=== PATIENT | male | born 1995 | race Caucasian/White ===

== ENCOUNTER 2020-05-12 17:55 | Emergency (ER) | payer SELFPAY ==
[~2020-05-12] VITALS: Ht 185.4 cm; Wt 122.2 kg
[2020-05-12 18:01] VITALS: BP 139/85
[2020-05-12] MEDS ORDERED: PROMETHAZINE 25 MG/ML, 1ML IM ONE (18:30)
[2020-05-12] MEDS ORDERED: PLEASE ENTER ALLERGIES MC SCH (18:30)
[2020-05-12] MEDS ORDERED: PROMETHAZINE 25 MG/ML, 1ML ONE (18:39)
--- NOTE | 2020-05-12 18:48 | NUR ---
REPORT FROM VIPUL LARSEN OF PT
[2020-05-12 18:50] LABS: BASOPHILS % (AUTO) 1 % (0-1); EOSINOPHILS % (AUTO) 1 % (1-7); LYMPHOCYTES % (AUTO) 16 % (22-44); MEAN CORPUSCULAR HEMOGLOBIN 27.5 pg (27.5-34.5); MEAN CORPUSCULAR HGB CONC 33.4 g/dL (33.2-36.2); MEAN PLATELET VOLUME 8.4 fL (7.4-10.4); MONOCYTES % (AUTO) 5 % (2-9); NEUTROPHILS % (AUTO) 77 % (42-75); PLATELET COUNT 237 x10^3/uL (130-400); RED BLOOD COUNT 5.41 x10^6/uL (4.38-5.82); RED CELL DISTRIBUTION WIDTH 13.4 % (9.4-14.8)
[2020-05-12 18:56] LABS: MD NO
[2020-05-12 19:00] LABS: ALBUMIN 4.2 g/dL (3.4-5.0); ANION GAP 8 mmol/L (5-15); CALCIUM 9.1 mg/dL (8.5-10.1); CHLORIDE 112 mmol/L (98-107); CREATININE 0.96 mg/dL (0.7-1.3)
== END 2020-05-12 19:46 | disposition home or self-care (01) ==
LOC: ED 19:42
DX: R10.84 Generalized abdominal pain (principal); R19.7 Diarrhea, unspecified; R51.9 Headache, unspecified
CPT/HCPCS: 36415; 80048; 82040; 85025; 96372; 99283; J2550

== ENCOUNTER 2020-05-17 16:23 | Emergency (ER) | payer SELFPAY ==
[~2020-05-17] VITALS: Ht 188 cm; Wt 128.0 kg
--- NOTE | 2020-05-17 17:17 | NUR ---
PATIENT WALKED BACK FROM [facility] WITH CHIEF C/O ABD CRAMPS, PER PATIENT "IT FEELS LIKE I'VE BEEN PUNCHED OVER AND OVER IN THE GUT." PATIENT REPORTS STOMACH CRAMPS STARTED WEDNESDAY, WITH EMESIS AND LUEVANO, PATIENT HAS NOT BEEN SLEEPING EITHER. PATIENT DENIES DIARRHEA AND FEVER, DOES REPORT "TAR BLACK STOOLS." NADN, CALL LIGHT WITHIN REACH.
[2020-05-17] MEDS ORDERED: ONDANSETRON ODT 4 MG PO ONE (18:00)
--- NOTE | 2020-05-17 18:01 | NUR ---
PATIENT AMBULATED TO BATHROOM WITH STEADY GAIT FOR URINE SAMPLE.
[2020-05-17] MEDS ORDERED: ONDANSETRON ODT 4 MG ONE (18:02)
[2020-05-17] MEDS ORDERED: PLEASE ENTER HEIGHT AND WEIGHT MC SCH (18:07)
--- NOTE | 2020-05-17 18:11 | NUR ---
PATIENT MEDICATED PER eMAR, URINE SAMPLE COLLECTED AND SENT TO LAB.
[2020-05-17 18:26] LABS: MICROSCOPIC NOT IND
[2020-05-17 18:37] LABS: BASOPHILS % (AUTO) 0 % (0-1); EOSINOPHILS % (AUTO) 1 % (1-7); LYMPHOCYTES % (AUTO) 23 % (22-44); MEAN CORPUSCULAR HEMOGLOBIN 27.6 pg (27.5-34.5); MEAN CORPUSCULAR HGB CONC 33.3 g/dL (33.2-36.2); MONOCYTES % (AUTO) 6 % (2-9); NEUTROPHILS % (AUTO) 69 % (42-75); PLATELET COUNT 272 x10^3/uL (130-400); RED BLOOD COUNT 5.43 x10^6/uL (4.38-5.82); RED CELL DISTRIBUTION WIDTH 13.1 % (9.4-14.8)
[2020-05-17 18:41] LABS: MD NO
[2020-05-17 18:48] LABS: ALANINE AMINOTRANSFERASE 31 U/L (12-78); ALBUMIN 4.1 g/dL (3.4-5.0); ANION GAP 4 mmol/L (5-15); CALCIUM 9.1 mg/dL (8.5-10.1); CHLORIDE 111 mmol/L (98-107); CREATININE 0.92 mg/dL (0.7-1.3)
[2020-05-17 18:50] LABS: ALKALINE PHOSPHATASE 85 U/L (45-117); BILIRUBIN,TOTAL 0.4 mg/dL (0.2-1.0); TOTAL PROTEIN 7.2 g/dL (6.4-8.2)
--- NOTE | 2020-05-17 19:26 | NUR ---
pt calm in bed. P/W/D. A&O. VSS. Pt states he feels like shit, on phone. Will monitor.
[2020-05-17 21:22] VITALS: BP 135/77
--- NOTE | 2020-05-17 21:24 | NUR ---
Patient/Caregiver given discharge instructions and they have confirmed that they understand the instructions. Patient ambulatory with steady gait. Home with taxi voucher.
== END 2020-05-17 21:25 | disposition home or self-care (01) ==
LOC: ED 16:52
DX: R10.12 Left upper quadrant pain (principal); R19.7 Diarrhea, unspecified
CPT/HCPCS: 36415; 80053; 81003; 83690; 85025; 99283; Q0162

== ENCOUNTER 2020-06-30 17:16 | Emergency (ER) | payer MEDICAID ==
[~2020-06-30] VITALS: Ht 188 cm; Wt 130.0 kg
[2020-06-30] MEDS ORDERED: ZIPRASIDONE 20 MG INJ IM ONE ×2 (17:29→18:11)
[2020-06-30] MEDS ORDERED: QUETIAPINE 100MG TABLET ONE (17:51)
[2020-06-30] MEDS ORDERED: LORazepam 1MG TABLET ONE ×2 (17:51→22:22)
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
[2020-06-30 17:57] LABS: BASOPHILS % (AUTO) 0 % (0-1); EOSINOPHILS % (AUTO) 2 % (1-7); LYMPHOCYTES % (AUTO) 19 % (22-44); MD NO; MEAN CORPUSCULAR HGB CONC 33.5 g/dL (33.2-36.2); MEAN PLATELET VOLUME 7.6 fL (7.4-10.4); MONOCYTES % (AUTO) 9 % (2-9); NEUTROPHILS % (AUTO) 69 % (42-75); PLATELET COUNT 281 x10^3/uL (130-400); RED BLOOD COUNT 5.45 x10^6/uL (4.38-5.82); RED CELL DISTRIBUTION WIDTH 13.3 % (9.4-14.8)
[2020-06-30] MEDS ORDERED: LORazepam 1MG TABLET PO ONE ×2 (18:00→22:30)
--- NOTE | 2020-06-30 18:00 | NUR ---
Mother -Katerina [phone]
[2020-06-30 18:09] LABS: ALBUMIN 4.5 g/dL (3.4-5.0); ANION GAP 5 mmol/L (5-15); CALCIUM 8.8 mg/dL (8.5-10.1); CHLORIDE 110 mmol/L (98-107); CREATININE 1.06 mg/dL (0.7-1.3)
--- NOTE | 2020-06-30 18:14 | NUR ---
REPORT FROM CHLOÉ. PT PREFERS TO BE CALLED BY [facility] BUT IS NOT KNOWN BY THAT WITH MOTHER. PT MEDICATED PER ERP ORDER. PT RELUCTANTLY TOOK MEDS, THEN ALLOWED LAB TO DRAW AFTER INITIALLY REFUSING. PT WITH ALTERNATING MOODS OF CALM AND SINGING THEN ANGRY AND PUNCHING AT BED, STATING HE IS "LIKE A VOLCANO AND HUNDRED TIMES A HUNDRED PRESSURE BUILDING UP'. PT ALSO STATES HE FEELS LIKE A CAGED ANIMAL IN THE ROOM. PT OFFERED FOOD, DRINK, BLANKET. PT ASKS FOR ACTIVITY, INCLUDING ART/DRAWING, MUSIC OR TV. PT VERBALIZES CONTRACT FOR SAFETY AND TV REMOTE GIVEN.
[2020-06-30 18:19] LABS: SALICYLATE LEVEL < 1.7 mg/dL (2.8-20.0)
--- NOTE | 2020-06-30 19:00 | NUR ---
URINE COLLECTED/WALKED TO LAB.
[2020-06-30 19:35] LABS: AMPHETAMINE SCREEN, URINE Negative (Negative); BARBITURATE SCREEN, URINE Negative (Negative); BENZODIAZEPINE SCREEN, URINE Negative (Negative); CANNABINOID SCREEN, URINE Negative (Negative); COCAINE SCREEN, URINE Negative (Negative); METHADONE SCREEN, URINE Negative (Negative); OPIATE SCREEN, URINE Negative (Negative)
--- NOTE | 2020-06-30 19:48 | NUR ---
PT SLEEPING, NAD. SITTER AT DOORWAY.
--- NOTE | 2020-06-30 20:01 | NUR ---
AJ FROM [facility] HERE TO ASSESS PT. PT SLEEPING, WILL NOT AROUSE TO VOICE. EVEN RISE AND FALL OF CHEST. AJ TO COME BACK LATER WHEN PT AWAKE TO ASSESS.
--- NOTE | 2020-06-30 20:22 | NUR ---
REPORT TO LEIA HARTMAN. NURSE WILL CALL BACK AFTER REVIEW OF CHART.
[2020-06-30] MEDS ORDERED: QUETIAPINE 100MG TABLET PO SCH (21:00)
--- NOTE | 2020-06-30 21:05 | NUR ---
REPORT TO HORTENSIA CHACON, TRANSFER OF CARE AT THIS TIME.
--- NOTE | 2020-06-30 21:18 | NUR ---
REPORT FROM SERGIO CHACON, WITH ASSESSMENT PATIENT FAST ASLEEP. GRUNTS TO PHYSICAL STIMULI CHEST RISE EVEN AND UNLABORED
--- NOTE | 2020-06-30 21:36 | NUR ---
Patient accepted by Dr. Rahman and bassam Chavis, at [place]. When attempting to set up [facility]TM was told by [facility] that patients medicaid [facility] insurance was inactive, though our registration, [place] registration and SW told this MT that patients insurance was active and when speaking to [facility] mandi Mendez who verified with her histotechnologist supervisor as long as [facility]TM denied patient they will transport so therefore transport set up for 2200.
[2020-06-30 21:44] VITALS: BP 101/57
--- NOTE | 2020-06-30 21:44 | NUR ---
vitals ontained. Provided with dinner. Patient updated on pending transfer to [place]. Patient agreeable
[2020-06-30] MEDS ORDERED: ONDANSETRON ODT 4 MG ONE (22:22)
[2020-06-30] MEDS ORDERED: ONDANSETRON ODT 4 MG PO ONE (22:30)
--- NOTE | 2020-06-30 22:31 | NUR ---
medicated per emar for nausea/anxiety
== END 2020-06-30 22:58 | disposition other institution (70) ==
LOC: ED 18:08
DX: R45.851 Suicidal ideations (principal); F22 Delusional disorders; F20.9 Schizophrenia, unspecified; F17.200 Nicotine dependence, unspecified, uncomplicated; Z91.14 Patient's other noncompliance with medication regimen
CPT/HCPCS: 36415; 80048; 80299; 80307; 80320; 80329; 82040; 85025; 99284; Q0162; G0480

== ENCOUNTER 2020-07-12 15:41 | Emergency (ER) | payer MEDICAID ==
[~2020-07-12] VITALS: Ht 188 cm; Wt 127.0 kg
[2020-07-12 15:59] VITALS: BP 133/76
== END 2020-07-12 17:27 | disposition left against medical advice (07) ==
LOC: ED 15:42
DX: R68.84 Jaw pain (principal)
CPT/HCPCS: 99283

== ENCOUNTER 2020-07-19 00:18 | Emergency (ER) | payer MEDICAID ==
[~2020-07-19] VITALS: Ht 188 cm; Wt 127.3 kg
[2020-07-19] MEDS ORDERED: ZIPRASIDONE 20 MG INJ IM ONE (01:00)
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
[2020-07-19] MEDS ORDERED: LEVOTHYROXINE (01:14)
[2020-07-19] MEDS ORDERED: SEROQUEL (01:14)
[2020-07-19] MEDS ORDERED: DEPAKOTE (01:14)
[2020-07-19 01:29] LABS: ALBUMIN 4.2 g/dL (3.4-5.0); ANION GAP 5 mmol/L (5-15); CALCIUM 9.1 mg/dL (8.5-10.1); CHLORIDE 109 mmol/L (98-107)
[2020-07-19] MEDS ORDERED: LORazepam 1MG TABLET PO ONE (01:30)
[2020-07-19 01:31] LABS: SALICYLATE LEVEL < 1.7 mg/dL (2.8-20.0)
[2020-07-19 01:40] LABS: ALANINE AMINOTRANSFERASE 25 U/L (12-78); ALKALINE PHOSPHATASE 102 U/L (45-117); BASOPHILS % (AUTO) 0 % (0-1); BILIRUBIN,TOTAL 0.2 mg/dL (0.2-1.0); CREATININE 0.93 mg/dL (0.7-1.3); EOSINOPHILS % (AUTO) 3 % (1-7); LYMPHOCYTES % (AUTO) 23 % (22-44); MEAN CORPUSCULAR HEMOGLOBIN 27.6 pg (27.5-34.5); MEAN CORPUSCULAR HGB CONC 33.1 g/dL (33.2-36.2); MEAN PLATELET VOLUME 8.7 fL (7.4-10.4); MONOCYTES % (AUTO) 9 % (2-9); NEUTROPHILS % (AUTO) 65 % (42-75); PLATELET COUNT 254 x10^3/uL (130-400); RED BLOOD COUNT 5.76 x10^6/uL (4.38-5.82); RED CELL DISTRIBUTION WIDTH 13.2 % (9.4-14.8); TOTAL PROTEIN 7.6 g/dL (6.4-8.2)
[2020-07-19 01:46] LABS: MD NO
--- NOTE | 2020-07-19 02:10 | NUR ---
PT RESTING ON GURNEY, NAD, APPEARS COMFORTABLE, EYES CLOSED, EVEN AND UNLABORED RESPIRATIONS, SITTER IN LINE OF SIGHT, ROOM SECURED. BED IN LOWEST, ONE RAILS ENGAGED, HOSPITAL BED AND BREAKFAST TRAY ORDERED. AWAITING URINE SAMPLE FOR UDS. WCTM.
--- NOTE | 2020-07-19 05:30 | NUR ---
PT NAD, RESTING ON GURNEY, EYES CLOSED, EVEN AND UNLABORED RESPIRATIONS, PT HAS YET TO WAKE UP AND OBTAIN UA. HOSPITAL BED OUTSIDE OF ROOM FOR WHEN PT AWAKENS. ROOM SECURED, SITTER IN LINE OF SIGHT, TM. L2K
--- NOTE | 2020-07-19 06:38 | NUR ---
PT NAD, RESTING ON GURNEY, EYES CLOSED, EVEN AND UNLABORED RESPIRATIONS, NO CHANGE IN CONDITION AT THIS TIME. ROOM SECURED, SITTER IN LINE OF SIGHT, [facility]. L2K
--- NOTE | 2020-07-19 06:41 | NUR ---
BEDSIDE REPORT TO YANETH CHACON, PT CARE TRANSFERRED AT THIS TIME.
--- NOTE | 2020-07-19 06:55 | NUR ---
BEDSIDE REPORT RECEIVED FROM INES MCKEON FOR TRANSFER OF PATIENT CARE.
--- NOTE | 2020-07-19 07:06 | NUR ---
PATIENT RESTING IN GURNEY WITH EYES CLOSED, RESP EVEN AND UNLABORED. SUICIDE PRECAUTIONS IN PLACE, SITTER IN LINE OF SIGHT, BREAKFAST TRAY ORDERED.
--- NOTE | 2020-07-19 08:33 | NUR ---
BREAKFAST TRAY PROVIDED, YOANDY, PATIENT COOPERATIVE WITH ASSESSMENT, VSS. PATIENT DENIES THOUGHTS OF HARMING HIMSELF AT THIS TIME. SUICIDE PRECAUTIONS IN PLACE, SITTER IN LINE OF SIGHT.
--- NOTE | 2020-07-19 08:48 | NUR ---
URINE COLLECTED AND SENT TO LAB.
[2020-07-19 08:49] LABS: AMPHETAMINE SCREEN, URINE Negative (Negative); BARBITURATE SCREEN, URINE Negative (Negative); BENZODIAZEPINE SCREEN, URINE Negative (Negative); CANNABINOID SCREEN, URINE Negative (Negative); COCAINE SCREEN, URINE Negative (Negative); METHADONE SCREEN, URINE Negative (Negative); OPIATE SCREEN, URINE Negative (Negative)
[2020-07-19 08:50] LABS: MICROSCOPIC NOT IND
--- NOTE | 2020-07-19 09:37 | NUR ---
PATIENT RESTING IN GURNEY, EYES CLOSED, RESP EVEN AND UNLABORED, SUICIDE PRECAUTIONS IN PLACE, SITTER IN LINE OF SIGHT.
--- NOTE | 2020-07-19 10:39 | NUR ---
LUNCH TRAY ORDERED.
--- NOTE | 2020-07-19 12:03 | NUR ---
PATIENT PLACED ON HOSPITAL BED, LUNCH TRAY PROVIDED, NADN, SUICIDE PREACUTIONS IN PLACE, SITTER IN LINE OF SIGHT.
--- NOTE | 2020-07-19 12:18 | NUR ---
SAM FERNANDEZ AT BEDSIDE FOR EVALUATION.
[2020-07-19] MEDS ORDERED: QUETIAPINE 100MG TABLET PO SCH (13:00)
[2020-07-19] MEDS ORDERED: QUETIAPINE 100MG TABLET ONE (13:05)
--- NOTE | 2020-07-19 13:09 | NUR ---
MEDICATED PER ORDERS. PT IN ROOM, SITTER PRESENT
--- NOTE | 2020-07-19 14:00 | NUR ---
PT PRATIMA TV. SITTER PRESENT
--- NOTE | 2020-07-19 15:19 | NUR ---
DENIED BY [facility]. PACKET FAXED TO [facility], [facility] AND [facility]
--- NOTE | 2020-07-19 15:29 | NUR ---
PT NAPPING, STTER PRESENT
[2020-07-19] MEDS ORDERED: LORazepam 1MG TABLET ONE (16:52)
--- NOTE | 2020-07-19 16:58 | NUR ---
MEDICATED W ATIVAN FOR ANXIETY. ORDERD MEAL TRAY. SITTER PRESENT.
--- NOTE | 2020-07-19 17:33 | NUR ---
MEAL TRAY GIVEN
--- NOTE | 2020-07-19 18:39 | NUR ---
[facility] CALLED AND STATED NO BEDS AT THIS TIME
--- NOTE | 2020-07-19 19:32 | NUR ---
PT WALKS AROUND AND TALKING TO THE SITTER. CALM AND COOPERATIVE. PT PROVIDED A MEAL TRAY AND FOOD PER REQUEST AND ORDERED DINNER. SITTER SITTING OUTSIDE OF ROOM.
--- NOTE | 2020-07-19 19:54 | NUR ---
PT ANXIOUS AND PACING BACK AND FORT, CONTINUES TO GO TO THE RESTROOM OVER AND OVER, AND HAS VOMITTED TWICE. PT WINDING UP AND MORE ANXIOUS AND DIFFICULT TO SETTLE HIMSELF. PT PROVIDED WITH WATER, BATHROOM PRIVILEGES, AND ALSO PRN MEDS TO HELP WITH ANXIETY. PT BACK IN BED TO HELP HIMSELF NOT FEEL SO NAUSEOUS. WARM BLANKETS PROVIDED, CALL LIGHT IN HAND, AND SITTER OUTSIDE OF ROOM WITH EYES ON.
[2020-07-19] MEDS ORDERED: LITHIUM CARBONATE 150 MG CAPSULE PO SCH (21:00)
[2020-07-19] MEDS ORDERED: QUETIAPINE 200 MG TABLET PO SCH (21:00)
--- NOTE | 2020-07-19 21:08 | NUR ---
PT RESTING IN BED WATCHING TV. NO ACUTE DISTRESS.
--- NOTE | 2020-07-19 22:40 | NUR ---
PT SLEEPING COMFORTABLY AT THIS TIME. NO ACUTE DISTRESS. SITTER OUTSIDE OF ROOM.
[2020-07-19 23:56] VITALS: BP 105/62
--- NOTE | 2020-07-20 00:04 | NUR ---
RECEIVED A CALL FROM [facility] AND PROVIDED REPORT ON PT IN ROOM 4. AND THEY V/U. AND WILL CALL US BACK IF THE MD ACCEPTS HIM. PT SLEEPING AT THIS TIME.
--- NOTE | 2020-07-20 01:45 | NUR ---
[facility] accepts. accepting doctor is Dr. Jose. via sudarshan.
--- NOTE | 2020-07-20 02:30 | NUR ---
PT SLEEPING IN BED. SITTER OUTSIDE, NO DISTRESS AT THIS TIME. [facility] HAS ACCEPTED PT, AND [facility] WILL BE AVAILABLE TO TAKE PT TO AT APPROX 0315.
--- NOTE | 2020-07-20 04:04 | NUR ---
RICHYSA ARRIVED AND PT TO BE TRANSFERRED TO [facility]. PT AWAKENED AND IN GOOD SPIRITS, COOPERATIVE AND AMBULATED TO THE AMBULANCE. PT D/C'D ON TRANSFERR TO [facility].
== END 2020-07-20 04:13 | disposition home or self-care (01) ==
LOC: ED 05:33
DX: R45.851 Suicidal ideations (principal); F32.9 Major depressive disorder, single episode, unspecified; F17.210 Nicotine dependence, cigarettes, uncomplicated; Z91.14 Patient's other noncompliance with medication regimen; F20.9 Schizophrenia, unspecified
CPT/HCPCS: 36415; 80053; 80178; 80299; 80307; 80320; 81003; 84443; 85025; 99284; 99406; Q0177; 80329; G0480

== ENCOUNTER 2020-08-15 01:10 | Emergency (ER) | payer MEDICAID ==
[~2020-08-15] VITALS: Ht 188 cm; Wt 127.0 kg
[~2020-08-15 01:10] MED LIST: DEPAKOTE; LEVOTHYROXINE; SEROQUEL
[2020-08-15 01:14] VITALS: BP 122/60
== END 2020-08-15 01:46 | disposition left against medical advice (07) ==
LOC: ED 01:40
DX: S09.90XA Unspecified injury of head, initial encounter (principal); R51.9 Headache, unspecified; V19.9XXA Pedal cyclist (driver) (passenger) injured in unspecified traffic accident, initial encounter; Y93.89 Activity, other specified; Y92.89 Other specified places as the place of occurrence of the external cause; Y99.8 Other external cause status
CPT/HCPCS: 99283

== ENCOUNTER 2020-08-25 02:43 | Emergency (ER) | payer MEDICAID ==
[~2020-08-25] VITALS: Ht 188 cm; Wt 124.8 kg
--- NOTE | 2020-08-25 02:50 | NUR ---
Patient BIBA c/o nausea and "sleepiness" after taking (4) 300mg tabs of Seroquel. Patient has an rx for this med and denies SI/SA. Patient states he has been tired and not able to sleep so he took extra meds. Patient is drowsy. Respirations even and unlabored.
--- NOTE | 2020-08-25 03:25 | NUR ---
task RN: assumed care of pt on behalf of primary RN Irwin for lunch break only. pt resting on gurney in position of comfort with eyes closed. no respiratory distress. no family at bedside
[2020-08-25] MEDS: SODIUM CHLORIDE 0.9% 1,000ML IVBOLUS ONE (03:30)
[2020-08-25 03:32] LABS: BASOPHILS % (AUTO) 1 % (0-1); EOSINOPHILS % (AUTO) 2 % (1-7); LYMPHOCYTES % (AUTO) 32 % (22-44); MEAN CORPUSCULAR HEMOGLOBIN 27.7 pg (27.5-34.5); MEAN CORPUSCULAR HGB CONC 33.8 g/dL (33.2-36.2); MEAN PLATELET VOLUME 7.9 fL (7.4-10.4); MONOCYTES % (AUTO) 7 % (2-9); NEUTROPHILS % (AUTO) 59 % (42-75); PLATELET COUNT 226 x10^3/uL (130-400); RED CELL DISTRIBUTION WIDTH 13.1 % (9.4-14.8)
[2020-08-25 03:44] LABS: ALBUMIN 3.9 g/dL (3.4-5.0); ANION GAP 7 mmol/L (5-15); CALCIUM 8.9 mg/dL (8.5-10.1); CHLORIDE 108 mmol/L (98-107)
[2020-08-25 03:45] LABS: SALICYLATE LEVEL < 1.7 mg/dL (2.8-20.0)
[2020-08-25 03:53] LABS: ALANINE AMINOTRANSFERASE 31 U/L (12-78); ALKALINE PHOSPHATASE 102 U/L (45-117); BILIRUBIN,TOTAL 0.3 mg/dL (0.2-1.0); CREATININE 0.99 mg/dL (0.7-1.3); FREE T4 (FREE THYROXINE) 0.81 ng/dL (0.76-1.46); TOTAL PROTEIN 7.4 g/dL (6.4-8.2)
--- NOTE | 2020-08-25 05:02 | NUR ---
PT REFUSED IV SAYING HE DOES NOT LIKE NEEDLES. PT SAID HE FEELS BETTER NOW AFTER HE SLEPT
[2020-08-25 06:18] VITALS: BP 132/78
--- NOTE | 2020-08-25 06:19 | NUR ---
pt reqested to leave. pt refused iv
== END 2020-08-25 06:25 | disposition home or self-care (01) ==
LOC: ED 05:50
DX: T43.591A Poisoning by other antipsychotics and neuroleptics, accidental (unintentional), initial encounter (principal); F51.01 Primary insomnia; R00.0 Tachycardia, unspecified; E03.9 Hypothyroidism, unspecified; F17.200 Nicotine dependence, unspecified, uncomplicated; R11.0 Nausea; Y92.9 Unspecified place or not applicable
CPT/HCPCS: 36415; 80053; 80299; 80320; 80329; 84439; 84443; 85025; 93005; 99284; G0480; J7030

== ENCOUNTER 2020-09-10 19:00 | Emergency (ER) | payer MEDICAID ==
[~2020-09-10] VITALS: Ht 188 cm; Wt 130.0 kg
--- NOTE | 2020-09-10 19:32 | NUR ---
PT BIB EMS FOR SI WITH A PLAN AT HOME, PT HAS A HX OF DEPRESSION, STATES HIS PLAN IS TO CUT HIMSELF WITH ALLAN NAILS OR JUMP OF A TALL BUILDING. PT APPEARS TO BE IN GOOD SPIRITS ON ARRIVAL TO ROOM, PT SINGING TO SELF AND CHANGED INTO GOWNS WITHOUT COMPLAINT. 03/15 BAGS PLACED IN LOCKER, PT ALSO HAS CRUTCHES DUE TO A LAC ON HIS FOOT THAT IS SUTURED SHUT, PT HAD A [facility] WRIST BAND THAT WAS REMOVED AND STATES HE THINKS IT WAS DONE THERE. SUPERFICIAL CUTS TO RIGHT WRIST NOTED AT THIS TIME. 03/15 BAGS AND CRUTCHES IN [facility] LOCKER. SITTER IN PLACED, ROOM SECURED, [facility].
--- NOTE | 2020-09-10 20:20 | NUR ---
PT WOUND CLEANED AND DRESSED AT THIS TIME. PT NAD, RESTING ON GURNEY, APPEARS COMFORTABLE, NO CHANGE IN CONDITION AT THIS TIME. WCTM.
[2020-09-10 20:23] LABS: BASOPHILS % (AUTO) 1 % (0-1); EOSINOPHILS % (AUTO) 1 % (1-7); LYMPHOCYTES % (AUTO) 20 % (22-44); MEAN CORPUSCULAR HEMOGLOBIN 27.6 pg (27.5-34.5); MEAN CORPUSCULAR HGB CONC 33.7 g/dL (33.2-36.2); MEAN PLATELET VOLUME 8.3 fL (7.4-10.4); MONOCYTES % (AUTO) 6 % (2-9); NEUTROPHILS % (AUTO) 72 % (42-75); PLATELET COUNT 276 x10^3/uL (130-400); RED BLOOD COUNT 5.55 x10^6/uL (4.38-5.82); RED CELL DISTRIBUTION WIDTH 13.5 % (9.4-14.8)
[2020-09-10 20:34] LABS: ALANINE AMINOTRANSFERASE 37 U/L (12-78); ALBUMIN 4.1 g/dL (3.4-5.0); ANION GAP 7 mmol/L (5-15); CALCIUM 9.4 mg/dL (8.5-10.1); CHLORIDE 109 mmol/L (98-107); CREATININE 0.87 mg/dL (0.7-1.3)
[2020-09-10 20:36] LABS: ALKALINE PHOSPHATASE 100 U/L (45-117); BILIRUBIN,TOTAL 0.6 mg/dL (0.2-1.0); SALICYLATE LEVEL < 1.7 mg/dL (2.8-20.0); TOTAL PROTEIN 7.7 g/dL (6.4-8.2)
--- NOTE | 2020-09-10 20:42 | NUR ---
pt unable to urinate at this time. provided water to assist, nad, no change in condition, sitter in line of sight, room secured, tm.
[2020-09-10 21:14] LABS: MICROSCOPIC NOT IND
[2020-09-10 21:26] LABS: AMPHETAMINE SCREEN, URINE Negative (Negative); BARBITURATE SCREEN, URINE Negative (Negative); BENZODIAZEPINE SCREEN, URINE Negative (Negative); CANNABINOID SCREEN, URINE Negative (Negative); COCAINE SCREEN, URINE Negative (Negative); METHADONE SCREEN, URINE Negative (Negative); OPIATE SCREEN, URINE Negative (Negative)
--- NOTE | 2020-09-10 21:58 | NUR ---
hugo [email or web address] contacted for possible admit.
--- NOTE | 2020-09-10 22:50 | NUR ---
REPORT TO GENNA CHACON, PT CARE TRANSFERRED AT THIS TIME. NAD, NO CHANGE IN CONDITION, ROOM SECURED, SITTER IN LINE OF SIGHT
--- NOTE | 2020-09-10 22:57 | NUR ---
Pt sitting on side of gurney, talking with sitter. No needs expressed at this time. Will cont to monitor.
--- NOTE | 2020-09-11 00:31 | NUR ---
Pt sleeping on left lateral side, covered in blankets. No acute distress noted. Room secured,sitter at doorway for observation. Will cont to monitor.
--- NOTE | 2020-09-11 02:24 | NUR ---
PT SWABBED FOR RAPID COVID. ADMIT TO BHU PENDING COVID TEST.
[2020-09-11 03:09] VITALS: BP 107/49
--- NOTE | 2020-09-11 03:14 | NUR ---
Tech at bedside for Vital signs. Pt tolerated well, vss, sitter at doorway and will cont to monitor.
[2020-09-11] MEDS ORDERED: QUET200T4 PO ×2 (11:07→14:24)
[2020-09-11] MEDS ORDERED: LEVO88TA2 PO (14:15)
[2020-09-11] MEDS ORDERED: LITH450T PO (14:24)
[2020-09-11] MEDS ORDERED: SERT50TA PO (14:24)
[2020-09-11] MEDS ORDERED: CLON1TAB PO (14:24)
[2020-09-11] MEDS ORDERED: OLAN20TA3 PO (14:24)
[2020-09-11] MEDS ORDERED: QUET400T4 PO (14:24)
== END 2020-09-11 04:18 ==
LOC: ED 21:29
DX: R45.851 Suicidal ideations (principal); Z20.822 Contact with and (suspected) exposure to COVID-19; Z72.9 Problem related to lifestyle, unspecified; R94.31 Abnormal electrocardiogram [ECG] [EKG]; E03.9 Hypothyroidism, unspecified; Z91.14 Patient's other noncompliance with medication regimen
CPT/HCPCS: 36415; 80053; 80299; 80307; 80320; 80329; 81003; 85025; 87635; 99285; G0480

== ENCOUNTER 2020-09-11 02:36 | Inpatient (IN) | payer MEDICAID ==
[~2020-09-11] VITALS: Ht 188 cm; Wt 110.7 kg
[2020-09-11] MEDS ORDERED: HYDROXYZINE PAMOATE 50MG CAP PO PRN (03:00)
[2020-09-11] MEDS ORDERED: BISACODYL 10 MG SUPP PR PRN (03:00)
[2020-09-11] MEDS ORDERED: DOCUSATE 100 MG CAPSULE PO PRN (03:00)
[2020-09-11] MEDS ORDERED: ONDANSETRON ODT 4 MG PO PRN (03:00)
[2020-09-11] MEDS ORDERED: POLYETHYLENE GLYCOL 17 GM PACKET PO PRN (03:00)
[2020-09-11] MEDS ORDERED: PLEASE ENTER HEIGHT AND WEIGHT MC SCH (05:00)
[2020-09-11 05:07] VITALS: BP 130/83
[2020-09-11] MEDS: ACETAMINOPHEN 325 MG TABLET PO PRN ×2 (05:16→11:44)
[2020-09-11] MEDS ORDERED: NICOTINE 14MG/24 HR PATCH.TD24 TD SCH (07:30)
[2020-09-11 07:38] VITALS: BP 130/82
[2020-09-11] MEDS ORDERED: NICOTINE 14MG/24 HR PATCH.TD24 ONE (07:38)
[2020-09-11 08:19] LABS: CHOL/HDL RATIO 5.1; FREE T4 (FREE THYROXINE) 0.87 ng/dL (0.76-1.46); LDL/HDL RATIO 3.4 (0.5-3.0)
[2020-09-11] MEDS: NICOTINE 14MG/24 HR PATCH.TD24 TD SCH (08:47)
[2020-09-11] MEDS: BACITRACIN/POLYMIXIN B SULFATE OINT 14 GM TP SCH ×2 (10:30→22:51)
[2020-09-11] MEDS ORDERED: QUET200T4 PO ×2 (11:07→14:24)
[2020-09-11] MEDS ORDERED: LEVO88TA2 PO (14:15)
[2020-09-11] MEDS ORDERED: QUET400T4 PO (14:24)
[2020-09-11] MEDS ORDERED: CLON1TAB PO (14:24)
[2020-09-11] MEDS ORDERED: LITH450T PO (14:24)
[2020-09-11] MEDS ORDERED: SERT50TA PO (14:24)
[2020-09-11] MEDS ORDERED: OLAN20TA3 PO (14:24)
[2020-09-11] MEDS ORDERED: HALOPERIDOL 5 MG/ML IM STA (17:11)
[2020-09-11] MEDS ORDERED: DIPHENHYDRAMINE 50 MG/ML, 1ML IM STA (17:11)
[2020-09-11] MEDS ORDERED: LORazepam 2 MG/ML, 1ML IM STA (17:11)
[2020-09-11] MEDS ORDERED: LORazepam 2 MG/ML, 1ML ONE (17:14)
[2020-09-11] MEDS ORDERED: HALOPERIDOL 5 MG/ML ONE (17:14)
[2020-09-11] MEDS ORDERED: DIPHENHYDRAMINE 50 MG/ML, 1ML ONE (17:14)
[2020-09-11 19:36] VITALS: BP 116/63
[2020-09-11] MEDS: OLANZAPINE 5 MG TABLET PO SCH (22:51)
[2020-09-11] MEDS: LITHIUM CARBONATE 150 MG CAPSULE PO SCH (22:51)
[2020-09-11] MEDS: QUETIAPINE 100MG TABLET PO SCH (22:51)
[2020-09-11] MEDS: SERTRALINE 50MG TABLET PO SCH (22:51)
[2020-09-12] MEDS: LEVOTHYROXINE 88 MCG TABLET PO SCH (06:00)
[2020-09-12 10:17] VITALS: BP 105/69
[2020-09-12] MEDS: LITHIUM CARBONATE 150 MG CAPSULE PO SCH ×2 (10:20→20:37)
[2020-09-12] MEDS: QUETIAPINE 100MG TABLET PO SCH ×2 (10:20→20:37)
[2020-09-12] MEDS: NICOTINE 14MG/24 HR PATCH.TD24 TD SCH (10:22)
[2020-09-12] MEDS: BACITRACIN/POLYMIXIN B SULFATE OINT 14 GM TP SCH (10:23)
[2020-09-12 19:28] VITALS: BP_SYST 130; BP_SYST 147; BP_DIAS 76; BP_DIAS 80
[2020-09-12] MEDS: ACETAMINOPHEN 325 MG TABLET PO PRN (20:36)
[2020-09-12] MEDS: OLANZAPINE 5 MG TABLET PO SCH (20:36)
[2020-09-12] MEDS: SERTRALINE 50MG TABLET PO SCH (20:37)
[2020-09-12] MEDS ORDERED: BACITRACIN/POLYMIXIN B SULFATE OINT 14 GM TP SCH (21:00)
[2020-09-13] MEDS: LEVOTHYROXINE 88 MCG TABLET PO SCH (06:02)
[2020-09-13 07:40] VITALS: BP 116/72
[2020-09-13] MEDS: QUETIAPINE 100MG TABLET PO SCH ×2 (08:26→22:19)
[2020-09-13] MEDS: NICOTINE 14MG/24 HR PATCH.TD24 TD SCH (08:26)
[2020-09-13] MEDS: LITHIUM CARBONATE 150 MG CAPSULE PO SCH ×2 (08:26→22:18)
[2020-09-13 19:33] VITALS: BP 120/70
[2020-09-13] MEDS: BACITRACIN/POLYMIXIN B SULFATE OINT 14 GM TP SCH (21:00)
[2020-09-13] MEDS: ACETAMINOPHEN 325 MG TABLET PO PRN (22:19)
[2020-09-13] MEDS: SERTRALINE 50MG TABLET PO SCH (22:20)
[2020-09-13] MEDS: OLANZAPINE 5 MG TABLET PO SCH (22:20)
[2020-09-14] MEDS: LEVOTHYROXINE 88 MCG TABLET PO SCH (06:04)
[2020-09-14 09:18] VITALS: BP 121/59
[2020-09-14] MEDS: LITHIUM CARBONATE 150 MG CAPSULE PO SCH ×2 (09:32→21:35)
[2020-09-14] MEDS: QUETIAPINE 100MG TABLET PO SCH ×3 (09:33→21:42)
[2020-09-14] MEDS: NICOTINE 14MG/24 HR PATCH.TD24 TD SCH (10:08)
[2020-09-14 19:51] VITALS: BP 120/83
[2020-09-14] MEDS: BACITRACIN/POLYMIXIN B SULFATE OINT 14 GM TP SCH (21:00)
[2020-09-14] MEDS: SERTRALINE 50MG TABLET PO SCH (21:35)
[2020-09-14] MEDS: OLANZAPINE 5 MG TABLET PO SCH (21:36)
[2020-09-15] MEDS: LEVOTHYROXINE 88 MCG TABLET PO SCH (06:00)
[2020-09-15] MEDS: BACITRACIN/POLYMIXIN B SULFATE OINT 14 GM TP SCH (09:00)
[2020-09-15] MEDS: LITHIUM CARBONATE 150 MG CAPSULE PO SCH ×2 (09:40→22:55)
[2020-09-15] MEDS: QUETIAPINE 100MG TABLET PO SCH ×2 (09:41→22:55)
[2020-09-15] MEDS: NICOTINE 14MG/24 HR PATCH.TD24 TD SCH (09:43)
[2020-09-15] MEDS: ACETAMINOPHEN 325 MG TABLET PO PRN (14:54)
[2020-09-15] MEDS ORDERED: NICO-486 TD (15:25)
[2020-09-15] MEDS ORDERED: QUET400T4 PO (15:25)
[2020-09-15] MEDS ORDERED: QUET100T PO (15:25)
[2020-09-15] MEDS ORDERED: LEVO88TA2 PO (15:25)
[2020-09-15] MEDS ORDERED: SERT50TA28 PO (15:25)
[2020-09-15] MEDS ORDERED: LITH150C PO (15:25)
[2020-09-15] MEDS ORDERED: OLAN5TAB9 PO (15:25)
[2020-09-15 19:29] VITALS: BP 119/78
[2020-09-15] MEDS: OLANZAPINE 5 MG TABLET PO SCH (22:56)
[2020-09-15] MEDS: SERTRALINE 50MG TABLET PO SCH (22:56)
[2020-09-16] MEDS: LEVOTHYROXINE 88 MCG TABLET PO SCH (06:00)
[2020-09-16 07:36] VITALS: BP 125/83
[2020-09-16] MEDS: QUETIAPINE 100MG TABLET PO SCH (08:24)
[2020-09-16] MEDS: LITHIUM CARBONATE 150 MG CAPSULE PO SCH (08:25)
[2020-09-16] MEDS: NICOTINE 14MG/24 HR PATCH.TD24 TD SCH (08:25)
[2020-09-16] MEDS: BACITRACIN/POLYMIXIN B SULFATE OINT 14 GM TP SCH (08:28)
== END 2020-09-16 10:39 | disposition home or self-care (01) | DRG 885 ==
LOC: 3E 04:32
PROVIDERS: ADMIT Psychiatry & Neurology Psychosomatic Medicine; ATTEND Psychiatry & Neurology Psychosomatic Medicine
DX: F25.0 Schizoaffective disorder, bipolar type (principal); R45.851 Suicidal ideations; F17.210 Nicotine dependence, cigarettes, uncomplicated; E03.9 Hypothyroidism, unspecified; Z78.1 Physical restraint status; Z79.899 Other long term (current) drug therapy
CPT/HCPCS: 36415; 80061; 80178; 82607; 84439; 84443; 93005; Q0162; J1200; J1630; J2060

== ENCOUNTER 2020-10-05 20:30 | Emergency (ER) | payer MEDICAID ==
[~2020-10-05 20:30] MED LIST changes: +CLON1TAB PO; +LEVO88TA2 PO; +LITH150C PO; +LITH450T PO; +NICO-486 TD; +OLAN20TA3 PO; +OLAN5TAB69 PO; +QUET100T PO; +QUET200T4 PO; +QUET400T4 PO; +SERT50TA PO; +SERT50TA28 PO
[2020-10-05 20:33] VITALS: BP 121/76
--- NOTE | 2020-10-05 20:45 | NUR ---
PT PRESENTS TO ER FOR RIGHT LOWER BACK PAIN THAT STARTED ABOUT FOUR AND A HALF HOURS AGO, PT WAS SWIMMING IN THE [place] AND THE CURRENT PULLED YOU IN AND PT STATES YOU CURLED INTO A BALL TO PREVENT ANYTHING FROM BREAKING AND THEN PT HIT HIS BACK ON A ROCK, PT STATES HE IS IN EXCRUCIATING PAIN BUT PT IS WATCHING A VIDEO ON HIS PHONE AND IS VERY CALM AND RELAXED, PT ASKING FOR WIFI PASSWORD, PT NAD AT THIS TIME
[2020-10-05] MEDS ORDERED: DIAZEPAM 5 MG TABLET ONE (21:17)
[2020-10-05] MEDS ORDERED: IBUPROFEN 600 MG TABLET ONE (21:18)
--- NOTE | 2020-10-05 21:28 | NUR ---
PT DISCHARGED WITH [facility] FOR PAIN MEDS AND MUSCLE RELAXERS, PT AMBULATED WELL ON HIS OWN, PT DID NOT GRIMACE WHILE WALKING, PT DID NOT HAVE A LIMP, PT WAS STEADY ON HIS FEET AND WALKED AT AN APPROPRIATE PACE
[2020-10-05] MEDS ORDERED: DIAZEPAM 5 MG TABLET PO ONE (21:30)
[2020-10-05] MEDS ORDERED: IBUPROFEN 600 MG TABLET PO ONE (21:30)
== END 2020-10-05 21:37 | disposition home or self-care (01) ==
LOC: ED 21:20
DX: S39.012A Strain of muscle, fascia and tendon of lower back, initial encounter (principal); E03.9 Hypothyroidism, unspecified; Z87.891 Personal history of nicotine dependence; W22.8XXA Striking against or struck by other objects, initial encounter; Y93.89 Activity, other specified; Y92.89 Other specified places as the place of occurrence of the external cause; Y99.8 Other external cause status
CPT/HCPCS: 99283

== ENCOUNTER 2020-11-29 02:42 | Emergency (ER) | payer MEDICAID ==
[~2020-11-29] VITALS: Ht 188 cm; Wt 100.0 kg
[~2020-11-29 02:42] MED LIST changes: -QUET100T PO; +QUET100T2 PO
[2020-11-29] MEDS ORDERED: PLEASE ENTER HEIGHT AND WEIGHT MC SCH (03:00)
--- NOTE | 2020-11-29 03:01 | NUR ---
PT FOUND WONDERING AT [facility], [facility] CALLED EMS. EMS REPORTS PT MADE STATEMENTS ABOUT WANTING TO HURT HIMSELF WITH A KNIFE. NO KNIFE FOUND ON SCENE. PT WITH HX OF SCHIZOPHRENIA AND STATES HE TAKES 800 MG SERQUEL DAILY. PT HAS LARGE BAG FULL OF MULTIPLE PAPERS FROM [employer] IN WHICH HE IS [place] SEARCHING THROUGH LOOKING FOR A PAGE WITH LATIN ON IT. PT MAKING RANDOM STATEMENTS SUCH "THESE AREN'T THE DROIDS YOU'RE LOOKING FOR" AND OTHER QUOTES FROM WELL KNOWN MOVIES. PT BECAMSE AGGITED WHEN NEEDING TO CHANGE INTO GOWN AND GIVE UP PERSONAL BELONGINGS. PT REFUSING TO REMOVE UNDERWEAR AND SOCKS. PT REDIRECTED AND IN HOSPITAL GOWN, ALL PERSONAL BELONGINGS PLACED IN LOCKER, SI PRECAUTIONS IN PLACE. URINAL PROVIDED AND PT AWARE OF NEEDING TO PROVIDE PAULO.
--- NOTE | 2020-11-29 03:07 | NUR ---
REPORT TO OSCAR CHACON
[2020-11-29] MEDS ORDERED: QUETIAPINE 100MG TABLET ONE ×3 (03:09→11:33)
[2020-11-29 03:12] LABS: BASOPHILS % (AUTO) 1 % (0-1); EOSINOPHILS % (AUTO) 1 % (1-7); LYMPHOCYTES % (AUTO) 31 % (22-44); MEAN CORPUSCULAR HEMOGLOBIN 27.4 pg (27.5-34.5); MEAN CORPUSCULAR HGB CONC 33.4 g/dL (33.2-36.2); MEAN PLATELET VOLUME 8.1 fL (7.4-10.4); MONOCYTES % (AUTO) 9 % (2-9); NEUTROPHILS % (AUTO) 58 % (42-75); PLATELET COUNT 215 x10^3/uL (130-400); RED BLOOD COUNT 5.81 x10^6/uL (4.38-5.82); RED CELL DISTRIBUTION WIDTH 13.4 % (9.4-14.8)
[2020-11-29 03:23] LABS: ALBUMIN 3.9 g/dL (3.4-5.0); ANION GAP 4 mmol/L (5-15); CALCIUM 8.7 mg/dL (8.5-10.1); CHLORIDE 110 mmol/L (98-107); CREATININE 0.96 mg/dL (0.7-1.3); SALICYLATE LEVEL < 1.7 mg/dL (2.8-20.0)
--- NOTE | 2020-11-29 03:24 | NUR ---
BEDSIDE REPORT RECEIVED FROM RANDALL CHACON
--- NOTE | 2020-11-29 05:02 | NUR ---
PT SUPINE ON GURYOANDY WINSTON, VSS, SLEEPING CALMLY. PT DENIES ANY NEEDS AT THIS TIME. SAFETY PRECAUTIONS IN PLACE. NO ADDITIONAL NEEDS AT THIS TIME.
--- NOTE | 2020-11-29 07:05 | NUR ---
REPORT TO ISAIAH CHACON
--- NOTE | 2020-11-29 08:49 | NUR ---
PT BREAKFAST TRAY DELIVERED. PT PHYSICAL REASSESSMENT, SUICIDE REASSESSMENT, AND VSS OBTAINED. NAD. PT IN SECURE ROOM WITH SITTER OUTSIDE IN LINE OF SIGHT.
--- NOTE | 2020-11-29 10:11 | NUR ---
PT RESTING ON SIDE WITH EYES CLOSED. NAD. EVEN RISE AND FALL OF CHEST NOTED. SITTER OUTSIDE SECURE ROOM, IN DIRECT LINE OF SIGHT.
[2020-11-29] MEDS ORDERED: LITHIUM CARBONATE 150 MG CAPSULE PO ONE (11:30)
[2020-11-29] MEDS ORDERED: QUETIAPINE 100MG TABLET PO ONE (11:30)
[2020-11-29] MEDS ORDERED: SERTRALINE 50MG TABLET PO ONE (11:30)
[2020-11-29] MEDS ORDERED: SERTRALINE 50MG TABLET ONE (11:34)
[2020-11-29] MEDS ORDERED: NICO-486 TD (11:36)
[2020-11-29] MEDS ORDERED: QUET400T4 PO (11:36)
[2020-11-29] MEDS ORDERED: SERT50TA28 PO (11:36)
[2020-11-29] MEDS ORDERED: LITH150C PO (11:36)
[2020-11-29] MEDS ORDERED: LEVO88TA2 PO (11:36)
[2020-11-29] MEDS ORDERED: OLAN5TAB69 PO (11:36)
[2020-11-29] MEDS ORDERED: QUET200T4 PO (11:36)
--- NOTE | 2020-11-29 11:37 | NUR ---
PHARMACY TUBED FOR MED
[2020-11-29 13:25] LABS: AMPHETAMINE SCREEN, URINE Negative (Negative); BARBITURATE SCREEN, URINE Negative (Negative); BENZODIAZEPINE SCREEN, URINE Negative (Negative); CANNABINOID SCREEN, URINE Negative (Negative); COCAINE SCREEN, URINE Negative (Negative); METHADONE SCREEN, URINE Negative (Negative); OPIATE SCREEN, URINE Negative (Negative)
[2020-11-29 13:36] VITALS: BP 120/78
--- NOTE | 2020-11-29 13:39 | NUR ---
BELONGINGS RETURNED TO PT. NADN.
--- NOTE | 2020-11-29 13:40 | NUR ---
I CALLED FOR PT TO GO TO [address] [place] FOR DC PLAN.
--- NOTE | 2020-11-29 13:59 | NUR ---
Patient given discharge instructions and they have confirmed that they understand the instructions. Patient ambulatory with steady gait. Provided w/ taxi voucher.
[2020-11-29] MEDS ORDERED: QUETIAPINE 100MG TABLET PO SCH (21:00)
== END 2020-11-29 14:00 | disposition home or self-care (01) ==
LOC: ED 02:50
DX: F25.9 Schizoaffective disorder, unspecified (principal); R45.851 Suicidal ideations; Z59.0 Homelessness; E03.9 Hypothyroidism, unspecified; Z87.891 Personal history of nicotine dependence
CPT/HCPCS: 36415; 80048; 80299; 80307; 80320; 80329; 82040; 85025; 99285; G0480